=== PATIENT | male | born 1965 | race Caucasian/White ===

== ENCOUNTER 2019-12-18 07:53 | Emergency (ER) | payer OTHER ==
[~2019-12-18] VITALS: Ht 182.9 cm; Wt 90.7 kg
[~2019-12-18 07:53] MED LIST: FUROSEMIDE40 MG ORAL
--- NOTE | 2019-12-18 07:53 | NUR ---
ED Nurse Note: Pt brought in by ambulance with epistaxis since 0600 this morning. Pt is alert and orientedx4, ambulatory. Pt set up on monitor. Pt pulses radial bilateral present 3+. No pallor, SOB. Pt has history of HTN, COPD.
[2019-12-18 07:55] VITALS: BP 110/71
[2019-12-18] MEDS ORDERED: AFRIN NASAL SPR30 ML NASAL (07:56)
--- NOTE | 2019-12-18 07:56 | Emergency Room Report ---
History of Present Illness General Chief Complaint: Nosebleed Source: Patient, EMS Present Illness HPI Patient is a 54-year-old male who presents to the ER by EMS for nosebleed. Patient states that he has a history of nosebleeds in the past. He states that he woke up this morning with bleeding from both of his nostrils. Bleeding has since stopped. Patient denies any trauma. He denies any headache, fever or chills. He denies being on any blood thinners. Patient denies any chest pain or shortness of breath. Patient has not tried any treatments for his prior nosebleeds. Allergies: Coded Allergies: ASPIRIN (Verified Allergy, Unknown, 12/18/19) PENICILLINS (Verified Allergy, Unknown, 12/18/19) Patient History Social History: Reports: smoking, alcohol use Reviewed Nursing Documentation: PMH: Agreed; PSxH: Agreed Nursing Documentation-PMH Past Medical History: No History, Except For Hx Hypertension: Yes Hx COPD: Yes Review of Systems All Other Systems: negative except mentioned in HPI Physical Exam Vital Signs Date Time Temp Pulse Resp B/P (MAP) Pulse Ox O2 Delivery O2 Flow Rate FiO2 12/18/19 07:46 97.7 69 20 110/71 (84) 100 Room Air Sp02 EP Interpretation: reviewed, normal General Appearance: no apparent distress, alert, GCS 15, non-toxic Head: normocephalic, atraumatic Eyes: bilateral eye normal inspection, bilateral eye PERRL ENT: hearing grossly normal, normal pharynx, no angioedema, normal voice, other - Dried blood inside of both nares, no septal hematoma, no active bleeding , no signs of trauma Neck: full range of motion, supple/symm/no masses Respiratory: chest non-tender, lungs clear, normal breath sounds, speaking full sentences Cardiovascular #1: regular rate, rhythm, no edema Cardiovascular #2: 2+ carotid (R), 2+ carotid (L), 2+ radial (R), 2+ radial (L) , 2+ dorsalis pedis (R), 2+ dorsalis pedis (L) Gastrointestinal: normal bowel sounds, non tender, soft, non-distended, no guarding, no rebound Rectal: deferred Genitourinary: normal inspection, no CVA tenderness Musculoskeletal: back normal, normal range of motion, calf tenderness, gait/ station normal, non-tender Neurologic: alert, motor strength/tone normal, oriented x3, sensory intact, responsive, speech normal Psychiatric: judgement/insight normal, memory normal, mood/affect normal, no suicidal/homicidal ideation Reflexes: 3+ bicep (R), 3+ bicep (L), 3+ tricep (R), 3+ tricep (L), 3+ knee (R) , 3+ knee (L) Lymphatic: no adenopathy Medical Decision Making Diagnostic Impression: Primary Impression: Epistaxis ER Course Patient's vital signs are stable. He has no active bleeding in the emergency room. I have ordered for Afrin and a nose clip PRN for bleeding. Patient is not on any blood thinners. After discussing risks and benefits of further diagnostics, treatment plans, as well as indications for and risks of admission , the patient is agreeable to being discharged home. I have explained that their evaluation and treatment in the emergency department today is an important step towards them achieving better health but that their evaluation today is not intended to replace further evaluation and treatment by a physician in their local clinic. I have explained that while the current findings suggest no immediate life threatening emergency they will require further evaluation and treatment by a physician of their choice in their area. They understand that it will be necessary for them to review the final reports of their ED visit with their clinic physician. We have reviewed indications for return to the Emergency Department. I have explained that additional time may need to pass and/or additional testing as an outpatient may be necessary before a definitive diagnosis can be made. They tell me they are willing to follow up as instructed within the timeframe I recommend. They appear to understand what we discussed. Additionally they understand that if they are unable to be seen by an outpatient physician they are welcome, and in fact should, return to the Emergency Department for a repeat evaluation. The patient is stable at time of discharge. Last Vital Signs Date Time Temp Pulse Resp B/P (MAP) Pulse Ox O2 Delivery O2 Flow Rate FiO2 12/18/19 07:46 97.7 69 20 110/71 (84) 100 Room Air Status: improved Disposition: HOME, SELF-CARE Condition: Stable Scripts Oxymetazoline HCl (Afrin) 15 Ml [place] 2 SPRAY NASAL TWICE A DAY, #1 SPRAY Prov: Olivia Ortez M.D. 12/18/19 Patient Instructions: Nosebleed, [id number] Olivia Ortez M.D. Dec 18, 2019 07:56
[2019-12-18] MEDS ORDERED: Oxymetazoline 0.05% Na Spray 30ml NASAL ONE (08:00)
[2019-12-18] MEDS ORDERED: Vitamin A&D ud Packet TOPIC PRN (08:00)
--- NOTE | 2019-12-18 08:25 | NUR ---
ER DISCHARGE NOTE: Patient is cleared to be discharged per ERMD, pt is aox4, on room air, with stable vital signs. pt was given dc and prescription instructions, pt was able to verbalize understanding, pt id band and iv site removed without complications. pt is able to ambulate with steady gait. pt took all belongings.
[2019-12-18 08:30] VITALS: BP 110/71
== END 2019-12-18 08:35 | disposition home or self-care (01) ==
LOC: EDBD 07:53 → EMR 08:15
DX: R04.0 Epistaxis (principal); I10 Essential (primary) hypertension; J44.9 Chronic obstructive pulmonary disease, unspecified; F17.200 Nicotine dependence, unspecified, uncomplicated; Z88.6 Allergy status to analgesic agent; Z88.0 Allergy status to penicillin
CPT/HCPCS: 99282